=== PATIENT | female | born 1990 | race Caucasian/White ===

== ENCOUNTER 2018-11-23 05:31 | Inpatient (IN) ==
--- NOTE | 2018-11-10 13:18 | Anesthesiology Consultation ---
Date of Service November 10, 2018 Assessment & Plan (1) Encounter for pre-operative examination: - No labs at PAT: helena Mari at OB office, no labs to be done at PAT visit Chart Review Chart Review: Acceptable Risk for Surgery and Patient seen in Pre Admission Testing Teaching & Discussion Pre-Anesthesia Teaching/Discussion Notes: Instructed NPO after midnight before surgery,except medications with 15 cc of water. Medication instructions provided according to the [facility] guidelines. History Surgery Operation Date: 11/23/18 07:30 Proposed Procedures p Section in LD - Bogdan Whiting MD Height/Weight Height: 5 ft 4 in Weight: 98.5 kg Allergies Allergy/AdvReac Type Severity Reaction Status Date / Time No Known Allergies Allergy Verified 11/03/18 10:52 Medications Home Medications Medication Instructions Recorded Confirmed Last Taken PNV cmb#95-ferrous fumarate-FA 1 tab PO QAM 08/26/18 11/03/18 Unknown [] acetaminophen 500 - 1,000 mg PO Q6H PRN 11/03/18 11/03/18 Unknown Past Medical History Medical History Exercise / Class Metabolic Activity III < 4 Walking/Shop/Light housework Past Family History Family History Other No significant family history Past Surgical History Surgical History Hx of cholecystectomy History of open reduction and internal fixation (ORIF) procedure RIGHT WRIST Hx of section c/s (breech): 01/25/16: SAB x 1 at L3-L4 at [facility] Past Anesthesia History No Hx of Anesthesia Complications and No Family Hx of Anesthesia Complications History of PONV No Hx of PONV and No Hx of Motion Sickness Social History Smoking Status: Former smoker Do You Dip or Chew Tobacco: No Smoking End Date: Quit 2015 Hx Alcohol Use: No Hx Substance Use: No Review of Systems related reflux and LBP. Patient denies chest pain, shortness of breath, cough, wheezing, palpitations. Physical Exam Vital Signs VITALS BP 114/74 P 99 TEMP 98.4 SP02 99%RA RESP 16 PHYSICAL Full neck and c-spine range of motion. Full TMJ range of motion. TMD 4 finger breaths Mallampati Score 2 Dentition: missing filling on molar Lungs: clear throughout to auscultation Cardiac: regular rate and rhythm, I/ systolic murmur LUSB Spine: normal Carotid arteries: negative bruit Extremities: no edema
--- NOTE | 2018-11-22 22:13 | History and Physical Report ---
DATE OF ADMISSION: 11/23/2018 REASON FOR ADMISSION AND HISTORY OF PRESENT ILLNESS: The patient is a 28-year-old white female 3, para 1-0-1-1 at 39 weeks presenting for an elective repeat section. The patient has had care without any difficulty. She is consented for a repeat section. PAST MEDICAL HISTORY: Noncontributory. PAST SURGICAL HISTORY: x1 in the past without any complications. ALLERGIES: No known allergies. SOCIAL HISTORY: Denies smoking, alcohol or drug use. FAMILY HISTORY: Noncontributory. REVIEW OF SYSTEMS: Negative. PHYSICAL EXAMINATION: VITAL SIGNS: Weight is 218 pounds, BMI 26.28, blood pressure 116/64, afebrile. HEENT: Within normal limits. LUNGS: Clear to auscultation. COR: Regular rate and rhythm. ABDOMEN: Soft, nontender, gravid. heart tones are category 1. EXTREMITIES: Within normal limits. NEUROLOGICAL: Intact. ASSESSMENT: Term elective repeat section.
[2018-11-23] MEDS: LACTATED RINGER'S 1,000 ML IV SCH ×4 (05:45→18:35)
[2018-11-23] MEDS ORDERED: CITRIC ACID/SODIUM CITRATE 15 ML UDC PO SCH (06:00)
[2018-11-23] MEDS ORDERED: CEFAZOLIN 3,000 MG in DEXTROSE 5% 50 ML IV SCH (06:00)
[2018-11-23 06:18] LABS: Basophils # (auto) 0.02 K/uL (0-0.2); Basophils % (auto) 0.3 %; Eosinophils # (auto) 0.06 K/uL (0-0.5); Eosinophils % (auto) 0.8 %; Hematocrit (blood only) 29.7 % (37-47); Hemoglobin 9.9 g/dL (12.0-16.0); Immature Granulocytes # (auto) 0.04 K/uL (0.00-0.02); Immature Granulocytes % (auto) 0.5 %; Lymphocytes # (auto) 1.51 K/uL (1.2-3.4); Mean Corpuscular Hemoglobin 29.6 pg (25-34); Mean Corpuscular Volume 88.7 fL (80-100); Mean Platelet Volume 9.6 fL (7.4-10.4); Monocytes # (auto) 0.41 K/uL (0.11-0.59); Monocytes % (auto) 5.2 %; Neutrophils % (auto) 74.2 %; Platelet Count 156 K/uL (130-400); RDW Coefficient of Variation 14.5 % (11.5-14.5); RDW Standard Deviation 46.2 fL (36.4-46.3); Red Blood Count 3.35 M/uL (4.2-5.4); White Blood Count 7.94 K/uL (4.8-10.8)
[2018-11-23 06:28] LABS: Mean Corpuscular Hgb Conc 33.3 g/dL (32-36)
--- NOTE | 2018-11-23 06:58 | History & Physical Bridge Note ---
Date of Service November 23, 2018 History & Physical Bridge Note I have examined the patient, reviewed the History & Physical and in the interval since the performance of the History & Physical I have noted the following changes of clinical significance: no changes noted
[2018-11-23] MEDS ORDERED: fentaNYL citrate 100 MCG/2 ML VIAL ONE (07:31)
[2018-11-23] MEDS ORDERED: MoRPHine SULFATE PF 1 MG/ML 10 ML AMP/VIAL ONE (07:31)
[2018-11-23] MEDS ORDERED: ONDANSETRON INJ 2 MG/ML 2 ML VIAL ONE (07:46)
[2018-11-23] MEDS ORDERED: OXYTOCIN 10 UNITS/ML VIAL ONE (07:46)
[2018-11-23] MEDS ORDERED: ePHEDrine sulfate 50 MG/ML SYR ONE (08:23)
--- NOTE | 2018-11-23 08:38 | Post Operative Brief Note ---
Immediate Post Op Note v1 Date of Surgery November 23, 2018 Pre & Post Diagnosis Operation Date: 11/23/18 07:30 <No data on this case meets the specified criteria> term elective repeat breech Procedure Operation Date: 11/23/18 07:30 <No data on this case meets the specified criteria> repeat low segment transverse Surgeon Bogdan Whiting MD Phytochemistry Professor Shama Estimated Blood Loss 500 Findings Consistent with Post-Op Diagnosis live male Apgars 9/9 double footling breech Fluids 1300 LR Specimens Placenta cord blood Drains Jose Catheter Anesthesia Type Spinal Complications none Disposition Accompanied Patient To Recovery: Yes Disposition: L&D Overlapping Procedure I was present for: the critical portions of procedure. I was immediately available: during the entire case. Back up surgeon: used during listed procedure.
[2018-11-23] MEDS ORDERED: ePHEDrine sulfate 50 MG/ML AMP IV PRN (08:46)
[2018-11-23] MEDS ORDERED: NALOXONE HCL 1 MG in SODIUM CHLORIDE 0.9% 1000ML 1,000 ML IV PRN (08:46)
[2018-11-23] MEDS ORDERED: ONDANSETRON INJ 2 MG/ML 2 ML VIAL IV PRN (08:46)
[2018-11-23] MEDS ORDERED: ACETAMINOPHEN 1000 MG/100 ML IV IV PRN (08:46)
[2018-11-23] MEDS ORDERED: NALOXONE HCL 0.4 MG/1 ML VIAL/CARP IV PRN (08:46)
[2018-11-23] MEDS ORDERED: HYDROmorphone INJ 0.5 MG/0.5 ML SYR IV PRN (08:46)
[2018-11-23] MEDS ORDERED: MoRPHine SULFATE PF 1 MG/ML 10 ML AMP/VIAL INT SPINAL ONE (08:46)
[2018-11-23] MEDS ORDERED: LACTATED RINGER'S 500 ML IV PRN (08:46)
[2018-11-23] MEDS ORDERED: NALOXONE HCL 0.08 MG in SYRINGE 1.8 ML IV PRN (08:46)
[2018-11-23] MEDS ORDERED: NALBUPHINE HCL INJ 10 MG/ML AMP IV PRN (08:46)
[2018-11-23] MEDS ORDERED: NO NARCOTICS OR SEDATIVES SCH (09:00)
[2018-11-23] MEDS ORDERED: DC INTRASPINAL MORPHINE SCH (09:00)
[2018-11-23] MEDS ORDERED: SODIUM CHLORIDE 0.9% 1000ML 1,000 ML IV SCH (09:00)
[2018-11-23] MEDS ORDERED: NALBUPHINE HCL INJ 10 MG/ML AMP ONE (09:06)
--- NOTE | 2018-11-23 09:23 | Anesthesiology Progress Note ---
Date of Service November 23, 2018 Anesthesia Post Procedure Vital Signs Vital Signs: Temp Pulse Resp BP Pulse Ox 11/23/18 09:21 86 111/72 11/23/18 09:19 84 100 11/23/18 09:14 80 98 11/23/18 09:11 74 112/73 11/23/18 09:10 74 17 112/73 100 11/23/18 09:09 68 100 11/23/18 09:04 69 128/69 100 11/23/18 09:02 91 H 127/79 11/23/18 09:00 96 H 22 128/69 100 11/23/18 08:59 83 100 11/23/18 08:54 84 100 11/23/18 08:52 96 H 112/55 L 11/23/18 08:50 86 24 112/55 L 100 11/23/18 08:49 86 100 11/23/18 08:45 98 H 90 11/23/18 08:44 87 99 11/23/18 08:40 36.5 C 92 H 18 126/73 99 11/23/18 08:39 94 H 99 11/23/18 05:41 36.9 C 82 16 119/80 Transfer of Care Handoff Completed per policy Notes Mental Status: alert / awake / arousable and participated in evaluation Nausea / Vomiting: adequately controlled Pain: adequately controlled Airway Patency, RR, SpO2: stable & adequate BP & HR: stable & adequate Hydration State: stable & adequate Neuraxial Anesthesia: was administered and sensory block is resolving Anesthetic Complications: no major complications apparent and Pt Satisfied with anesthetic care
[2018-11-23] MEDS ORDERED: SENNA 8.6 MG TAB PO PRN (10:30)
[2018-11-23] MEDS ORDERED: SUPERCREAM 0.870% 15 GM JAR EXT PRN (10:30)
[2018-11-23] MEDS ORDERED: DIPHTHERIA/TETANUS/PERTUSSIS 0.5 ML SYR/VIAL IM ONE (10:30)
[2018-11-23] MEDS ORDERED: HYDROCORTISONE ACETATE 25 MG SUPP PR PRN (10:30)
[2018-11-23] MEDS ORDERED: MAGNESIUM HYDROXIDE SUSP 30 ML UDC PO PRN (10:30)
[2018-11-23] MEDS ORDERED: NON-FORMULARY MEDICATION (Pnv Cmb#95-Ferrous Fumarate-Fa [Prenatal] 1 TAB) PO SCH (10:30)
[2018-11-23] MEDS ORDERED: BENZOCAINE 20% AER SPR 82.5 GM CAN EXT PRN (10:30)
[2018-11-23] MEDS: KETOROLAC 30 MG/ML VIAL IV PRN ×2 (11:43→19:40)
[2018-11-23] MEDS: SIMETHICONE 80 MG CHEW PO SCH ×3 (13:19→20:52)
[2018-11-23] MEDS: DiphenhydrAMINE HCL 50 MG/ML VIAL IV PRN ×2 (14:43→20:56)
[2018-11-23] MEDS: DOCUSATE SODIUM 100 MG CAP PO SCH (20:52)
--- NOTE | 2018-11-23 22:03 | Operative Report ---
DATE OF OPERATION: 11/23/2018 PREOPERATIVE DIAGNOSIS: Term elective repeat section and breech presentation. POSTOPERATIVE DIAGNOSES: Term elective repeat section and breech presentation, double footling breech. SURGEON: Bogdan Whiting MD PA[employer] SUPERVISOR: Lela Smith MD ANESTHESIA: Spinal. FINDINGS: Live male, Apgars 9 and 9 double footling breech. weight pending. FLUIDS: 1300 LR. SPECIMENS: Placenta and cord blood. DRAINS: Jose. COMPLICATIONS: None. CLINICAL HISTORY: The patient is a 28-year-old female para 1-0-1-1 at 39 weeks, admitted for elective repeat section. Timeout was called prior to the start of the procedure. The patient received 3 grams of Ancef prior to the start of the procedure. DESCRIPTION OF PROCEDURE: Under satisfactory spinal anesthesia, the patient was prepped and draped in usual sterile fashion. A low Pfannenstiel incision through a prior scar was then made entering into the abdominal cavity in successive layers without difficulty. Upon entering into the peritoneal cavity, pickups with teeth and Metzenbaums were then used to develop a bladder flap. This was sharply dissected down. A low segment transverse incision over the lower uterine segment was made. The incision was widened in the AP diameter. The amniotic sac was nicked, was found to be clear. The incision was widened in the AP diameter. The infant was found to be in the double footling breech presentation. Both legs were then grasped and the delivery was accomplished without difficulty, first delivering the shoulders with a nuchal arm with the arms delivered as well and followed by the head. There was delayed cord clamping. Cord was then doubly clamped and cut. Baby was handed to ultrasound applications specialist. Apgars were 9 and 9, weight pending, live male. Cord blood was then obtained. Placenta was then delivered spontaneously and intact. Uterus was then exteriorized. Ring forceps were then used to grab both angles in the inferior margin. Another ring was used to clean out to dilate the cervix. Clean lap pad was then used to clean out debris from the uterus. No active bleeding was noted. Pitocin was started in the IV. The uterus was closed in double layer closure starting with a 0 Vicryl suture in a continuous interlocking fashion followed by a second imbricating suture of 0 Vicryl suture. No active bleeding was noted. The initial sponge, needle and instrument count were found to be correct. The lower uterine segment was inspected, no active bleeding was noted. The contents of the pelvic cavity were then irrigated to clear. The uterus was then placed back into the normal anatomical position. Lower uterine segment was noted to be within normal limits. Tubes, ovaries bilaterally were found to be within normal limits and no active bleeding in the lower segment was noted. The fascia was then reapproximated from both sides using 0 Vicryl sutures in a continuous fashion followed by subcuticular space which was closed with 3-0 plain suture and 4-0 Monocryl for skin. Telfa and sponge dressing were then applied. Clear urine was noted from the Jose. Estimated blood loss was 500 mL. The final sponge, needle and instrument count were found to be correct. The patient was then placed supine on a stretcher and taken to recovery room in stable condition. I attest to the content of the Intraoperative Record and any orders documented therein. Any exception s are noted below.
[2018-11-24] MEDS ORDERED: KETOROLAC 30 MG/ML VIAL IV PRN (02:47)
[2018-11-24] MEDS ORDERED: DiphenhydrAMINE HCL 50 MG/ML VIAL IV PRN (02:47)
[2018-11-24] MEDS ORDERED: PROMETHAZINE HCL 25 MG in SODIUM CHLORIDE 0.9% 50 ML IV PRN (02:47)
[2018-11-24] MEDS ORDERED: ONDANSETRON INJ 2 MG/ML 2 ML VIAL IV PRN (02:47)
[2018-11-24] MEDS ORDERED: MEPERIDINE HCL 50 MG/ML CARP IV PRN (02:47)
[2018-11-24 06:34] LABS: Basophils # (auto) 0.01 K/uL (0-0.2); Basophils % (auto) 0.1 %; Eosinophils # (auto) 0.04 K/uL (0-0.5); Eosinophils % (auto) 0.4 %; Hematocrit (blood only) 28.3 % (37-47); Immature Granulocytes # (auto) 0.03 K/uL (0.00-0.02); Immature Granulocytes % (auto) 0.3 %; Lymphocytes # (auto) 1.02 K/uL (1.2-3.4); Lymphocytes % (auto) 9.3 %; Mean Corpuscular Hemoglobin 28.5 pg (25-34); Mean Corpuscular Hgb Conc 31.8 g/dL (32-36); Mean Corpuscular Volume 89.6 fL (80-100); Monocytes # (auto) 0.64 K/uL (0.11-0.59); Monocytes % (auto) 5.8 %; Neutrophils # (auto) 9.24 K/uL (1.4-6.5); Neutrophils % (auto) 84.1 %; Platelet Count 148 K/uL (130-400); RDW Coefficient of Variation 14.7 % (11.5-14.5); RDW Standard Deviation 47.8 fL (36.4-46.3); Red Blood Count 3.16 M/uL (4.2-5.4); White Blood Count 10.98 K/uL (4.8-10.8)
[2018-11-24] MEDS: SIMETHICONE 80 MG CHEW PO SCH ×4 (08:22→20:02)
[2018-11-24] MEDS: PRENATAL VITAMIN 1 TAB PO SCH (08:22)
[2018-11-24] MEDS: FERROUS SULFATE 325 MG TAB PO SCH (08:22)
[2018-11-24] MEDS: DOCUSATE SODIUM 100 MG CAP PO SCH ×2 (08:22→20:02)
--- NOTE | 2018-11-24 08:58 | Anesthesiology Progress Note ---
Date of Service November 24, 2018 Anesthesia Post Procedure Vital Signs Vital Signs: Temp Pulse Pulse Resp BP BP Pulse Ox 11/24/18 07:10 37 C 78 18 112/75 96 11/24/18 05:15 37.3 C 89 18 108/71 11/24/18 02:39 18 97 11/24/18 01:30 18 98 11/24/18 00:20 37.4 C 98 H 18 119/76 99 11/23/18 22:30 18 96 11/23/18 21:30 18 99 11/23/18 20:43 18 98 11/23/18 19:40 37.2 C 82 20 116/76 99 11/23/18 18:30 18 98 11/23/18 17:30 16 98 11/23/18 16:30 16 98 11/23/18 15:30 37.0 C 18 99 11/23/18 15:18 85 119/73 11/23/18 15:14 81 100 11/23/18 15:09 77 99 11/23/18 15:04 93 H 99 11/23/18 14:59 76 98 11/23/18 14:54 75 99 11/23/18 14:49 79 98 11/23/18 14:44 80 100 11/23/18 14:40 18 99 11/23/18 14:39 98 H 98 11/23/18 14:38 75 127/77 11/23/18 14:34 88 99 11/23/18 14:30 16 98 11/23/18 14:29 75 99 11/23/18 14:24 78 99 11/23/18 14:19 86 99 11/23/18 14:14 63 98 11/23/18 14:09 74 98 11/23/18 14:04 86 100 11/23/18 13:59 75 98 11/23/18 13:54 86 98 11/23/18 13:49 90 98 11/23/18 13:46 102 H 93 11/23/18 13:44 99 H 100 11/23/18 13:40 20 100 11/23/18 13:39 77 131/77 98 11/23/18 13:34 78 99 11/23/18 13:29 75 100 11/23/18 13:24 74 100 11/23/18 13:19 71 98 11/23/18 13:14 113 H 97 11/23/18 13:12 76 93 11/23/18 13:09 75 98 11/23/18 13:04 87 100 11/23/18 12:59 81 99 11/23/18 12:54 80 99 11/23/18 12:49 80 100 11/23/18 12:44 79 100 11/23/18 12:40 20 100 11/23/18 12:39 85 134/80 99 11/23/18 12:34 106 H 100 11/23/18 12:29 90 97 11/23/18 12:24 92 H 99 11/23/18 12:19 94 H 98 11/23/18 12:14 92 H 98 11/23/18 12:09 93 H 97 11/23/18 12:04 84 99 11/23/18 11:59 82 99 11/23/18 11:54 98 H 99 11/23/18 11:49 92 H 98 11/23/18 11:44 88 98 11/23/18 11:40 80 20 99 11/23/18 11:39 80 99 11/23/18 11:38 100 H 157/81 H 11/23/18 11:34 110 H 98 11/23/18 11:31 96 H 124/70 11/23/18 11:29 84 97 11/23/18 11:24 88 98 11/23/18 11:21 87 129/75 11/23/18 11:19 87 98 11/23/18 11:14 93 H 99 11/23/18 11:11 88 138/80 11/23/18 11:09 80 99 11/23/18 11:04 71 91 11/23/18 11:01 86 135/88 11/23/18 10:59 90 99 11/23/18 10:54 105 H 99 11/23/18 10:51 85 133/89 11/23/18 10:49 85 98 11/23/18 10:45 92 H 20 97 11/23/18 10:44 92 H 97 11/23/18 10:43 71 20 130/81 100 11/23/18 10:41 71 130/81 11/23/18 10:39 96 H 99 11/23/18 10:34 88 98 11/23/18 10:32 95 H 115/83 11/23/18 10:29 75 99 11/23/18 10:24 73 99 11/23/18 10:19 72 99 11/23/18 10:14 77 98 11/23/18 10:11 86 131/81 11/23/18 10:10 96 H 20 99 11/23/18 10:09 62 99 11/23/18 10:04 78 99 11/23/18 10:01 83 128/83 11/23/18 09:59 80 99 11/23/18 09:54 85 98 11/23/18 09:51 75 144/88 H 11/23/18 09:49 91 H 100 11/23/18 09:44 60 99 11/23/18 09:41 60 128/82 11/23/18 09:40 36.4 C L 60 20 128/82 98 11/23/18 09:39 66 98 11/23/18 09:34 63 99 11/23/18 09:31 65 120/75 11/23/18 09:30 65 17 120/75 11/23/18 09:29 76 100 11/23/18 09:24 77 100 11/23/18 09:21 86 111/72 11/23/18 09:20 86 14 111/72 100 11/23/18 09:19 84 100 11/23/18 09:14 80 98 11/23/18 09:11 74 112/73 11/23/18 09:10 74 17 112/73 100 11/23/18 09:09 68 100 11/23/18 09:04 69 128/69 100 11/23/18 09:02 91 H 127/79 11/23/18 09:00 96 H 22 128/69 100 11/23/18 08:59 83 100 Pain Intensity Bilateral Abdomen: Pain Intensity: 1 Transfer of Care Handoff Completed per policy Notes Mental Status: alert / awake / arousable Patient Amnestic to Procedure: Yes Nausea / Vomiting: adequately controlled Pain: adequately controlled Airway Patency, RR, SpO2: stable & adequate BP & HR: stable & adequate Hydration State: stable & adequate Neuraxial Anesthesia: was administered and sensory block resolved Anesthetic Complications: no major complications apparent and Pt Satisfied with anesthetic care
[2018-11-24] MEDS: IBUPROFEN 600 MG TAB PO PRN ×3 (09:46→21:33)
--- NOTE | 2018-11-24 10:26 | Obstetrical Progress Note ---
Date of Service November 24, 2018 Assessment & Plan (1) delivery delivered: c/sec day #1 pt doing well No complaints Subjective Ambulation: ambulating normally Voiding: no voiding problems Passing Gas:: Yes Diet Tolerance:: clear liquids Lochia:: Small Feeding Type:: breast feeding Review of Systems All systems reviewed & are unremarkable except as noted in HPI & below Physical Exam Constitutional WD/WN, vitals as above well developed and well nourished Eyes PERRL, conjunctivae normal, anicteric sclerae ENMT external ear and nose normal, oropharynx normal Neck trachea midline, no thyromegaly Respiratory normal respiratory effort, lungs clear to auscultation Cardiovascular RRR, no murmur, no edema Chest (Breasts) normal inspection/palpation of breasts Gastrointestinal (Abdomen) normal bowel sounds, soft, nontender, no hepatosplenomegaly Musculoskeletal no cyanosis or clubbing, extremities motor strength 5/5 Skin no rashes, warm and dry + incision (Clean,dry and intact) Neurologic patellar DTR's 2+ bilat, sensation intact Psychiatric A+Ox3, euthymic affect Genitourinary normal external appearance Lymphatic no cervical or axillary lymphadenopathy Results & Data Vital Signs (Past 12 Hours) Vital Signs Temp Pulse Pulse Resp BP BP Pulse Ox 11/24/18 07:10 37 C 78 18 112/75 96 11/24/18 05:15 37.3 C 89 18 108/71 11/24/18 02:39 18 97 11/24/18 01:30 18 98 11/24/18 00:20 37.4 C 98 H 18 119/76 99 11/23/18 22:30 18 96
--- NOTE | 2018-11-24 10:40 | Anesthesiology Progress Note ---
Date of Service November 24, 2018 Anesthesia Post Procedure Vital Signs Vital Signs: Temp Pulse Pulse Resp BP BP Pulse Ox 11/24/18 07:10 37 C 78 18 112/75 96 11/24/18 05:15 37.3 C 89 18 108/71 11/24/18 02:39 18 97 11/24/18 01:30 18 98 11/24/18 00:20 37.4 C 98 H 18 119/76 99 11/23/18 22:30 18 96 11/23/18 21:30 18 99 11/23/18 20:43 18 98 11/23/18 19:40 37.2 C 82 20 116/76 99 11/23/18 18:30 18 98 11/23/18 17:30 16 98 11/23/18 16:30 16 98 11/23/18 15:30 37.0 C 18 99 11/23/18 15:18 85 119/73 11/23/18 15:14 81 100 11/23/18 15:09 77 99 11/23/18 15:04 93 H 99 11/23/18 14:59 76 98 11/23/18 14:54 75 99 11/23/18 14:49 79 98 11/23/18 14:44 80 100 11/23/18 14:40 18 99 11/23/18 14:39 98 H 98 11/23/18 14:38 75 127/77 11/23/18 14:34 88 99 11/23/18 14:30 16 98 11/23/18 14:29 75 99 11/23/18 14:24 78 99 11/23/18 14:19 86 99 11/23/18 14:14 63 98 11/23/18 14:09 74 98 11/23/18 14:04 86 100 11/23/18 13:59 75 98 11/23/18 13:54 86 98 11/23/18 13:49 90 98 11/23/18 13:46 102 H 93 11/23/18 13:44 99 H 100 11/23/18 13:40 20 100 11/23/18 13:39 77 131/77 98 11/23/18 13:34 78 99 11/23/18 13:29 75 100 11/23/18 13:24 74 100 11/23/18 13:19 71 98 11/23/18 13:14 113 H 97 11/23/18 13:12 76 93 11/23/18 13:09 75 98 11/23/18 13:04 87 100 11/23/18 12:59 81 99 11/23/18 12:54 80 99 11/23/18 12:49 80 100 11/23/18 12:44 79 100 11/23/18 12:40 20 100 11/23/18 12:39 85 134/80 99 11/23/18 12:34 106 H 100 11/23/18 12:29 90 97 11/23/18 12:24 92 H 99 11/23/18 12:19 94 H 98 11/23/18 12:14 92 H 98 11/23/18 12:09 93 H 97 11/23/18 12:04 84 99 11/23/18 11:59 82 99 11/23/18 11:54 98 H 99 11/23/18 11:49 92 H 98 11/23/18 11:44 88 98 11/23/18 11:40 80 20 99 11/23/18 11:39 80 99 11/23/18 11:38 100 H 157/81 H 11/23/18 11:34 110 H 98 11/23/18 11:31 96 H 124/70 11/23/18 11:29 84 97 11/23/18 11:24 88 98 11/23/18 11:21 87 129/75 11/23/18 11:19 87 98 11/23/18 11:14 93 H 99 11/23/18 11:11 88 138/80 11/23/18 11:09 80 99 11/23/18 11:04 71 91 11/23/18 11:01 86 135/88 11/23/18 10:59 90 99 11/23/18 10:54 105 H 99 11/23/18 10:51 85 133/89 11/23/18 10:49 85 98 11/23/18 10:45 92 H 20 97 11/23/18 10:44 92 H 97 11/23/18 10:43 71 20 130/81 100 11/23/18 10:41 71 130/81 Pain Intensity Bilateral Abdomen: Pain Intensity: 1 Notes Mental Status: alert / awake / arousable and participated in evaluation Patient Amnestic to Procedure: Yes Nausea / Vomiting: adequately controlled Pain: adequately controlled Airway Patency, RR, SpO2: stable & adequate Hydration State: stable & adequate Neuraxial Anesthesia: was administered and sensory block is resolving Anesthetic Complications: no major complications apparent and Pt Satisfied with anesthetic care
[2018-11-24] MEDS: OXYCODONE/ACETAMINOPHEN 5mg/325mg TAB PO PRN ×3 (10:58→21:34)
[2018-11-24] MEDS ORDERED: BISACODYL 5 MG TABEC PO SCH (20:00)
[2018-11-25 06:41] LABS: Hematocrit (blood only) 28.1 % (37-47)
--- NOTE | 2018-11-25 07:58 | Surgery Progress Note ---
Date of Service November 25, 2018 Subjective doing well tolerating diet passing gas ambulating well planning for discharge Physical Exam Constitutional: WD/WN, vitals as above comfortable abdomen soft and non-tender Fundus firm incision clean, dry and intact no edema neg Anthony's for d/c today Results & Data Vital Signs (Past 12 Hours) Vital Signs Temp Pulse Resp BP Pulse Ox 11/25/18 00:30 37.2 C 80 16 110/67 98 11/24/18 19:55 37.3 C 77 16 121/81 98 Laboratory Results Laboratory Results - last 72 hr 11/23/18 11/23/18 11/24/18 06:01 06:01 06:14 WBC 7.94 10.98 H RBC 3.35 L 3.16 L Hgb 9.9 L 9.0 L Hct 29.7 L 28.3 L MCV 88.7 89.6 MCH 29.6 28.5 MCHC 33.3 31.8 L RDW Std Deviation 46.2 47.8 H RDW Coeff of Pepe 14.5 14.7 H Plt Count 156 148 MPV 9.6 10.0 Immature Gran % (Auto) 0.5 0.3 Neut % (Auto) 74.2 84.1 Lymph % (Auto) 19.0 9.3 Refug[place] % (Auto) 5.2 5.8 Eos % (Auto) 0.8 0.4 Baso % (Auto) 0.3 0.1 Immature Gran # (Auto) 0.04 H 0.03 H Neut # (Auto) 5.90 9.24 H Lymph # (Auto) 1.51 1.02 L Ref[place] # (Auto) 0.41 0.64 H Eos # (Auto) 0.06 0.04 Baso # (Auto) 0.02 0.01 Blood Type O Positive Antibody Screen NEGATIVE 11/25/18 06:23 WBC RBC Hgb 9.0 L Hct 28.1 L MCV MCH MCHC RDW Std Deviation RDW Coeff of Pepe Plt Count MPV Immature Gran % (Auto) Neut % (Auto) Lymph % (Auto) [place] % (Auto) Eos % (Auto) Baso % (Auto) Immature Gran # (Auto) Neut # (Auto) Lymph # (Auto) Refugio # (Auto) Eos # (Auto) Baso # (Auto) Blood Type Antibody Screen
[2018-11-25] MEDS: PRENATAL VITAMIN 1 TAB PO SCH (08:20)
[2018-11-25] MEDS: FERROUS SULFATE 325 MG TAB PO SCH (08:20)
[2018-11-25] MEDS: DOCUSATE SODIUM 100 MG CAP PO SCH (08:20)
[2018-11-25] MEDS: SIMETHICONE 80 MG CHEW PO SCH (08:21)
[2018-11-25] MEDS: IBUPROFEN 600 MG TAB PO PRN (08:21)
[2018-11-25] MEDS: OXYCODONE/ACETAMINOPHEN 5mg/325mg TAB PO PRN (08:21)
[2018-11-25] MEDS ORDERED: BISACODYL 10 MG SUPP PR PRN (08:48)
--- NOTE | 2018-12-03 00:27 | Discharge Summary ---
REASON FOR ADMISSION AND HOSPITAL COURSE: The patient is a 28-year-old female admitted for an elective term repeat section. The patient was a double footling breech upon , delivering a live male. Apgars were 9 and 9. Hospital course was unremarkable. The patient was discharged home on postop day #2 in stable condition. Home going instructions were given. Condition on discharge is stable. Regular diet and discharge medications include Percocet and Motrin. Follow up will be in 1 week for an incision check.
== END 2018-11-25 10:43 | disposition home or self-care (01) | DRG 788 ==
LOC: 4S1 05:31 → EDSTATUS 07:30 → 4S2 15:30